=== PATIENT | male | born 1960 | race Two or more races ===

== ENCOUNTER 2020-03-03 13:35 | Outpatient (CLI) | payer MEDICARE, OTHER ==
[~2020-03-03] VITALS: Ht 162.6 cm; Wt 86.6 kg
[2020-03-03 13:58] VITALS: BP 134/76
[2020-03-04] MEDS ORDERED: RISPERDAL1 MG PO (12:01)
[2020-03-04] MEDS ORDERED: TRAZODONE HCL50 MG ORAL (12:01)
[2020-03-04] MEDS ORDERED: CARBAMAZEPINE200 MG ORAL (12:01)
[2020-03-04] MEDS ORDERED: SIMVASTATIN10 MG ORAL (12:01)
[2020-03-04] MEDS ORDERED: TRAMADOL HCL50 MG ORAL (12:01)
[2020-03-04] MEDS ORDERED: METOPROLOL SUCC50 MG ORAL (12:01)
[2020-03-04] MEDS ORDERED: PANTOPRAZOLE SO40 MG ORAL (12:01)
[2020-03-04] MEDS ORDERED: CALCIUM500 M2 PO (12:01)
[2020-03-04] MEDS ORDERED: XANAX0.5 MG ORAL (12:01)
[2020-03-04] MEDS ORDERED: BUSPIRONE HCL10 M1 ORAL (12:01)
[2020-03-04] MEDS ORDERED: ATIVAN0.5 MG ORAL (12:01)
== END 2020-03-03 15:35 | disposition home or self-care (01) ==
LOC: PAN 13:35
DX: R10.9 Unspecified abdominal pain (principal)
CPT/HCPCS: G0463

== ENCOUNTER 2020-03-29 09:19 | Day surgery (SDC) | payer MEDICARE, OTHER ==
[2020-03-29] VITALS (8 sets, daily range): BP systolic 116–133; BP diastolic 56–84
[~2020-03-29] VITALS: Ht 167.6 cm; Wt 88.5 kg
[~2020-03-29 09:19] MED LIST: ATIVAN0.5 MG ORAL; BUSPIRONE HCL10 M1 ORAL; CALCIUM500 M2 PO; CARBAMAZEPINE200 MG ORAL; METOPROLOL SUCC50 MG ORAL; PANTOPRAZOLE SO40 MG ORAL; RISPERDAL1 MG PO; SIMVASTATIN10 MG ORAL; TRAMADOL HCL50 MG ORAL; TRAZODONE HCL50 MG ORAL; XANAX0.5 MG ORAL
--- NOTE | 2020-03-29 09:50 | Short Stay Surgery H&P ---
History of Present Illness History of Present Illness Chief Complaint see office note HPI Che Avila is a 59 year old male who was admitted on for Abdominal Pain Patient History Allergies: Coded Allergies: No Known Allergies (Unverified , 03/29/20) Medication History Scheduled Buspirone Hcl* (Buspirone Hcl*), 10 MG ORAL TWICE A DAY, (Reported) Carbamazepine* (Carbamazepine*), 200 MG ORAL FOUR TIMES A DAY, (Reported) Lorazepam* (Ativan*), 0.5 MG ORAL THREE TIMES A DAY, (Reported) Metoprolol Succinate* (Metoprolol Succinate*), 50 MG ORAL DAILY, (Reported) Pantoprazole* (Pantoprazole*), 40 MG ORAL DAILY, (Reported) Risperidone* (Risperdal*), 1 MG PO DAILY, (Reported) Simvastatin (Zocor), Unknown Dose ORAL BEDTIME, (Reported) Trazodone Hcl* (Desyrel*), 50 MG ORAL BEDTIME, (Reported) Scheduled PRN Tramadol Hcl* (Ultram*), 50 MG ORAL Q6H PRN for For Pain, (Reported) Miscellaneous Medications Alprazolam* (Xanax*), 0.5 MG ORAL, (Reported) Calcium Carbonate (Calcium), 500 MG PO, (Reported) Physical Exam Vital Signs Last Vital Signs Date Time Temp Pulse Resp B/P (MAP) Pulse Ox O2 Delivery O2 Flow Rate FiO2 03/29/20 09:45 Room Air 03/29/20 09:36 97.0 84 18 131/84 96 Plan Attestation Are the patient's medical conditions optimized for surgery? Aristides Helm MD Mar 29, 2020 09:50
--- NOTE | 2020-03-29 09:51 | Pre-Procedure Note/Attestation ---
Pre-Procedure Note/Attestation Complete Prior to Procedure Planned Procedure: not applicable Procedure Narrative: esophagogastroduodenoscopy and colonoscopy Indications for Procedure Pre-Operative Diagnosis: screening colon, GERD Attestation I attest that I discussed the nature of the procedure; its benefits; risks and complications; and alternatives (and the risks and benefits of such al ternatives), prior to the procedure, with the patient (or the patient's legal teleservices representative). I attest that, if there was a reasonable possibility of needing a blood transfusion, the patient (or the patient's legal teleservices representative) was given the [facility] standardized written summary, pursuant to the [place] Blood Safety Act ([place] Health and Safety Code # 1645, as amended). I attest that I re-evaluated the patient just prior to the surgery and that there has been no change in the patient's H&P, except as documented below: Aristides Helm MD Mar 29, 2020 09:51
[2020-03-29] MEDS ORDERED: Midazolam 2mg/2ml Inj ONE (09:54)
[2020-03-29] MEDS ORDERED: fentaNYL 100 mcg/2 mL IV ONE (09:54)
[2020-03-29] MEDS ORDERED: LR 1000ml ONE (10:00)
--- NOTE | 2020-03-29 10:04 | Anethesia Preoperative Eval ---
Anesthesia Pre-op PMH/ROS General Date of Evaluation: Mar 29, 2020 Time of Evaluation: 10:03 Anesthesiologist: Inge ASA Score: ASA 2 Mallampati Score Class I : Soft palate, uvula, fauces, pillars visible Class II: Soft palate, uvula, fauces visible Class III: Soft palate, base of uvula visible Class IV: Only hard plate visible Mallampati Classification: Class II Surgeon: Alicja Diagnosis: Abdominal pain Surgical Procedure: EGD Colonoscopy Anesthesia History: none Allergies: Coded Allergies: No Known Allergies (Unverified , 03/29/20) Medications: see eMAR Patient NPO?: Yes Past Medical History Cardiovascular: Reports: HTN; Denies: CAD, [place], valve dz, arrhythmia, other Pulmonary: Denies: asthma, COPD, ROLLY, other Gastrointestinal/Genitourinary: Reports: GERD; Denies: CRI, ESRD, other Neurologic/Psychiatric: Reports: depression/anxiety; Denies: dementia, CVA, TIA, other Endocrine: Denies: DM, hypothyroidism, steroids, other HEENT: Denies: cataract (L), cataract (R), glaucoma, CANTWELL (L), CANTWELL (R), other Hematology/Immune: Denies: anemia, DVT, bleeding disorder, other Musculoskeletal/Integumentary: Denies: OA, RA, DJD, DDD, edema, other Other: obesity PMH Narrative: as above PSxH Narrative: see H&P Anesthesia Pre-op Phys. Exam Physician Exam Last Vital Signs Date Time Temp Pulse Resp B/P (MAP) Pulse Ox O2 Delivery O2 Flow Rate FiO2 03/29/20 09:45 Room Air 03/29/20 09:36 97.0 84 18 131/84 96 Constitutional: NAD Neurologic: CN 2-12 intact Cardiovascular: RRR, no M/R/G Respiratory: CTA Gastrointestinal: other - obesity Airway Exam Mallampati Score: Class II MO: limited Neck: short ROM: limited Teeth: intact Anesthesia Pre-op A/P Studies Pre-op Studies: EKG - NSR Risk Assessment & Plan Assessment: NSR Plan: Jorge L Michaels MD Mar 29, 2020 10:04
--- NOTE | 2020-03-29 10:44 | Endoscopy Procedure Note ---
Endoscopy Procedure Note General Indication for Procedure: screening colon, GRD Procedures Performed: EGD, colonoscopy Operative Findings/Diagnosis: 4 polyps Specimen: yes Pt Tolerated Procedure Well: Yes Estimated Blood Loss: none Anesthesia Anesthesiologist: eduarda Anesthesia: MAC Inserted Devices Implant(s) used?: No Quality Quality of Bowel Preparation: Good Did scope reach the cecum?: Yes Was there any complications?: No GI Core Measures 50 yrs or older w/o bx or poly: No 10yrs. F/U recommended: Yes If not recommended, why?: Above average risk 18 years or older w/prev. colo: No Aristides Helm MD Mar 29, 2020 10:44
[2020-03-29] MEDS ORDERED: LR 1000ml 1,000 ML IVLG SCH (10:45)
--- NOTE | 2020-03-29 10:53 | Immediate Post-Op Evaluation ---
Immediate Post-Op Evalulation Immediate Post-Op Evalulation Procedure: Egd Coloinoscopy, polypectomy Date of Evaluation: Mar 29, 2020 Time of Evaluation: 10:52 IV Fluids: 600 Blood Products: none Estimated Blood Loss: none Urinary Output: none Blood Pressure Systolic: 125 Blood Pressure Diastolic: 68 Pulse Rate: 62 Respiratory Rate: 18 O2 Sat by Pulse Oximetry: 99 Temperature (Fahrenheit): 97.5 Pain Score (1-10): 1 Nausea: No Vomiting: No Complications none Patient Status: awake, patent, none Hydration Status: adequate Jorge L Alcazar MD Mar 29, 2020 10:53
--- NOTE | 2020-03-29 11:07 | 48 Hour Post Anesthesia Eval ---
Post Anesthesia Evaluation Procedure: Egd Coloinoscopy, polypectomy Date of Evaluation: Mar 29, 2020 Time of Evaluation: 11:06 Blood Pressure Systolic: 128 0: 72 Pulse Rate: 74 Respiratory Rate: 18 Temperature (Fahrenheit): 97.6 O2 Sat by Pulse Oximetry: 98 Airway: patent Nausea: No Vomiting: No Pain Intensity: 1 Hydration Status: adequate Cardiopulmonary Status: stable Mental Status/LOC: patient returned to baseline Follow-up Care/Observations: n/a Post-Anesthesia Complications: none Follow-up care needed: ready to discharge Jorge L Alcazar MD Mar 29, 2020 11:07
--- NOTE | 2020-03-29 12:14 | Procedure Note ---
DATE OF PROCEDURE: 03/29/2020 SURGEON: Aristides Helm MD. PROCEDURE: Upper endoscopy with biopsy, colonoscopy with biopsy, and snare polypectomy. ANESTHESIA: Per Dr. Jorge L Alcazar. INSTRUMENT: Olympus adult flexible endoscope and colonoscope. INDICATION: Screening colonoscopy evaluation and chronic GERD. REASON FOR PROCEDURE: The procedure, risks, benefits, and possible consequences, including hemorrhage, aspiration, perforation and infection, and alternative treatments, were explained to the patient/legal guardian by Dr. Aristides Helm and the patient/legal guardian understood and accepted these risks. PROCEDURE IN DETAIL: After informed consent was obtained and the patient was adequately sedated, Olympus upper endoscope was advanced from mouth into the second portion of duodenum and retroflexion was performed in the stomach. The patient has diffuse gastritis suspicious for H. pylori infection. Random biopsies from antrum and body was obtained and sent for pathology. At this time, the upper endoscope was retrieved, the patient was turned over for colonoscopy. First, rectal exam was performed, which was positive for internal hemorrhoids. Then, the scope was the advanced from the rectum into the cecum documented by appendix orifice, ileocecal valve, and right upper quadrant palpation and subsequently the scope was advanced to the terminal ileum. Quality of prep overall was good. The patient has evidence of one sessile polyp in the cecum, roughly measured about 7 mm removed with hot snare polypectomy technique. The patient had two polyps in the transverse colon, both removed with cold biopsy forceps technique. Another polyp in the sigmoid, removed with the snare polypectomy technique. One diverticula was seen in the left colon. Retroflexion of rectum showed evidence of internal hemorrhoids. SUMMARY OF FINDINGS: 1. Gastritis suspicious for H. pylori infection, status post biopsy. 2. Four colonic polyps removed, see above for details. 3. Internal hemorrhoids. 4. One single diverticula was seen in the left colon. RECOMMENDATIONS: Follow up biopsy results and treat accordingly. We did recommend repeat colonoscopy in three years given four polyps. Aristides Helm M.D. DR: VIJAYA/PAULY JOB#: [id number] CC:
== END 2020-03-29 12:25 | disposition home or self-care (01) ==
LOC: EDSEX 09:19 → GAS 09:19
DX: Z12.11 Encounter for screening for malignant neoplasm of colon (principal); D12.5 Benign neoplasm of sigmoid colon; D12.3 Benign neoplasm of transverse colon; K29.50 Unspecified chronic gastritis without bleeding; B96.81 Helicobacter pylori [H. pylori] as the cause of diseases classified elsewhere; K21.9 Gastro-esophageal reflux disease without esophagitis; K63.5 Polyp of colon; K64.8 Other hemorrhoids; K57.90 Diverticulosis of intestine, part unspecified, without perforation or abscess without bleeding; I10 Essential (primary) hypertension; F32.9 Major depressive disorder, single episode, unspecified; F41.9 Anxiety disorder, unspecified; E66.9 Obesity, unspecified; Z68.31 Body mass index [BMI] 31.0-31.9, adult
CPT/HCPCS: 43239; 45380; 45385; 93005; 94003; J2250; J2704; J3010; J7120; U0002; U0004; 94150

== ENCOUNTER 2020-04-05 13:37 | Outpatient (CLI) | payer MEDICARE, OTHER ==
--- NOTE | 2020-04-05 15:03 | General Progress Note ---
Subjective ROS Limited/Unobtainable: Yes Allergies: Coded Allergies: No Known Allergies (Unverified , 03/29/20) Objective General Appearance: alert EENT: normal ENT inspection Neck: supple Cardiovascular: normal rate Respiratory/Chest: lungs clear Abdomen: normal bowel sounds, non tender, soft Extremities: non-tender Assessment/Plan Assessment/Plan: HP positive 4 colon polyps treat for HP RTC 3 months for BT repeat colon in 3 years Aristides Helm MD Apr 05, 2020 15:03
== END 2020-04-05 15:37 | disposition home or self-care (01) ==
LOC: PAN 13:37
DX: K63.5 Polyp of colon (principal); B96.81 Helicobacter pylori [H. pylori] as the cause of diseases classified elsewhere
CPT/HCPCS: 99212